=== PATIENT | male | born 1980 | race Two or more races ===

== ENCOUNTER 2020-08-04 09:50 | Emergency (ER) | payer OTHER ==
[~2020-08-04] VITALS: Ht 175.3 cm; Wt 90.6 kg
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
--- NOTE | 2020-08-04 10:10 | NUR ---
pt to CT scan
[2020-08-04] MEDS ORDERED: LIDOCAINE-MPF 1%, 2ML ONE ×2 (10:11)
[2020-08-04] MEDS ORDERED: LIDOCAINE-MPF 1%, 5ML INFIL ONE (10:30)
--- NOTE | 2020-08-04 10:32 | NUR ---
Liseth LINDSAY at bedside for wound closure
[2020-08-04 11:00] VITALS: BP 135/87
== END 2020-08-04 11:06 | disposition home or self-care (01) ==
LOC: ED 10:50
DX: S01.511A Laceration without foreign body of lip, initial encounter (principal); Y00.XXXA Assault by blunt object, initial encounter; Y93.89 Activity, other specified; Y92.89 Other specified places as the place of occurrence of the external cause; Y99.8 Other external cause status
CPT/HCPCS: 12051; 70486; 99284